=== PATIENT | female | born 1985 | race American Indian/Alaskan Native ===

== ENCOUNTER 2018-03-24 19:33 | Emergency (ER) | payer OTHER ==
[2018-03-25] MEDS ORDERED: FLEXERIL PO ONE (02:27)
[2018-03-25] MEDS ORDERED: MOTRIN PO ONE (02:27)
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
[2018-03-25 02:42] VITALS: BP 140/82
== END 2018-03-25 02:44 | disposition home or self-care (01) ==
LOC: ED 19:33
DX: S16.1XXA Strain of muscle, fascia and tendon at neck level, initial encounter (principal); E11.9 Type 2 diabetes mellitus without complications; Z98.51 Tubal ligation status; Z88.5 Allergy status to narcotic agent; Z88.8 Allergy status to other drugs, medicaments and biological substances; V89.2XXA Person injured in unspecified motor-vehicle accident, traffic, initial encounter; Y93.89 Activity, other specified; Y92.89 Other specified places as the place of occurrence of the external cause; Y99.8 Other external cause status
CPT/HCPCS: 99282

== ENCOUNTER 2020-04-30 16:07 | Emergency (ER) | payer SELFPAY ==
[2020-04-30 17:20] VITALS: BP 151/86
--- NOTE | 2020-04-30 17:26 | Emergency Department Report ---
Blank Doc - Documentation Documentation: 35-year-old female that presents with umbilical pain with swelling and drainage. This initial assessment/diagnostic orders/clinical plan/treatment(s) is/are subject to change based on patient's health status, clinical progression and re- assessment by fellow clinical providers in the ED. Further treatment and workup at subsequent clinical providers discretion. Patient/guardians urged not to elope from the ED as their condition may be serious if not clinically assessed and managed. Initial orders include: 1- Patient sent to [facility] for further evaluation and treatment 2- labs
[2020-04-30 19:03] LABS: Basophils % (Auto) 0.7 % (0.0-1.8); Eosinophils # (Auto) 0.1 K/mm3 (0.0-0.4); Eosinophils % (Auto) 1.1 % (0.0-4.3); Hematocrit 42.7 % (30.3-42.9); Hemoglobin 14.6 gm/dl (10.1-14.3); Lymphocytes # (Auto) 1.4 K/mm3 (1.2-5.4); Lymphocytes % (Auto) 28.2 % (13.4-35.0); Mean Corpuscular HGB Conc 34 % (30-34); Mean Corpuscular Volume 93 fl (79-97); Monocytes # (Auto) 0.3 K/mm3 (0.0-0.8); Monocytes % (Auto) 6.3 % (0.0-7.3); Platelet Count 262 K/mm3 (140-440); Red Blood Count 4.58 M/mm3 (3.65-5.03); Red Cell Distribution Width 13.5 % (13.2-15.2)
[2020-04-30 19:05] LABS: BUN/Creatinine Ratio 18; Blood Urea Nitrogen 14 mg/dL (7-17); Calcium 9.7 mg/dL (8.4-10.2); Hemolysis Index 15
[2020-04-30] MEDS ORDERED: ONDANSETRON 4 MG ODT TAB PO ONE (21:39)
[2020-04-30] MEDS ORDERED: IBUPROFEN 600 MG TAB PO ONE (21:39)
[2020-04-30] MEDS ORDERED: SULFAMETHOXAZOLE/TRIMETHOPRIM 800/160MG DS TAB PO ONE (21:39)
--- NOTE | 2020-04-30 22:20 | Emergency Department Report ---
ED General Adult HPI - General Chief complaint: Skin/Abscess/Foreign Body Stated complaint: PAIN/DISCHARGE/NAVEL Time Seen by Provider: 04/30/20 17:23 Source: patient, family Mode of arrival: Ambulatory Limitations: No Limitations - History of Present Illness Initial comments: Patient is a 35-year-old -Greek female with a history of non-insulin- dependent diabetes who presents to the ED with complaint of acute onset persistent painful swollen erythematous maculopapular rash with purulent discharge in the navel of the abdomen for the last 3 days. Patient states that the pain and the purulent discharge increased about 12 hours ago. Patient denies nausea, vomiting, diarrhea, dizziness, syncope, abdominal pain, chest pain or shortness of breath or headache and cough. MD Complaint: Painful swollen erythematous rash in the navel with purulent discharge -: Sudden, days(s) (3) Location: abdomen Radiation: non-radiation Severity scale (0 -10): 6 Quality: aching, sharp Consistency: constant Improves with: none Worsens with: none Associated Symptoms: denies other symptoms, rash (Erythematous maculopapular rash with purulent discharge in the navel). denies: confusion, chest pain, cough, diaphoresis, fever/chills, headaches, loss of appetite, shortness of breath, syncope, weakness Treatments Prior to Arrival: none - Related Data Previous Rx's Medication Instructions Recorded Last Taken Type Gentamicin 0.3% Ophth Soln 2 drops OP Q4H #1 bottle 02/05/14 Unknown Rx Nitrofurantoin [place]/M-Cryst 100 mg PO Q12HR #20 capsule 02/22/14 Unknown Rx [Macrobid] Phenazopyridine [Pyridium] 200 mg PO TID #6 tablet 02/22/14 Unknown Rx Cyclobenzaprine [Flexeril 10 MG 10 mg PO TID #30 tablet 03/25/18 Unknown Rx TAB] Ibuprofen [Motrin 600 MG tab] 600 mg PO Q8H #30 tablet 03/25/18 Unknown Rx Clindamycin [Clindamycin CAP] 300 mg PO Q8HR #60 capsule 04/30/20 Unknown Rx Ibuprofen [Motrin] 800 mg PO Q8HR PRN #30 tablet 04/30/20 Unknown Rx Sulfamethoxazole/Trimethoprim 1 each PO Q12H #20 tablet 10/07/20 Unknown Rx [Bactrim DS TAB] Allergies Allergy/AdvReac Type Severity Reaction Status Date / Time acetaminophen [From Percocet] Allergy Hives Verified 02/05/14 15:05 oxycodone HCl [From Percocet] Allergy Hives Verified 02/05/14 15:05 tramadol Allergy Itching Verified 02/05/14 15:05 ED Review of Systems ROS: Stated complaint: PAIN/DISCHARGE/NAVEL Other details as noted in HPI Constitutional: denies: chills, fever Eyes: denies: eye pain, eye discharge, vision change ENT: denies: ear pain, throat pain Respiratory: denies: cough, shortness of breath, wheezing Cardiovascular: denies: chest pain, palpitations Endocrine: no symptoms reported Gastrointestinal: denies: abdominal pain, nausea, diarrhea Genitourinary: denies: urgency, dysuria, discharge Musculoskeletal: denies: back pain, joint swelling, arthralgia Skin: rash (erythematous maculopapular rash with purulent discharge in the navel), change in color, pruritus. denies: lesions Neurological: denies: headache, weakness, paresthesias Psychiatric: denies: anxiety, depression Hematological/Lymphatic: denies: easy bleeding, easy bruising ED Past Medical Hx - Past Medical History Previous Medical History?: Yes Hx Diabetes: Yes - Surgical History Past Surgical History?: Yes Additional Surgical History: tubal ligation - Social History Smoking Status: Never Smoker Substance Use Type: None - Medications Home Medications: Home Medications Medication Instructions Recorded Confirmed Last Taken Type Gentamicin 0.3% Ophth Soln 2 drops OP Q4H #1 bottle 02/05/14 Unknown Rx Nitrofurantoin [place]/M-Cryst 100 mg PO Q12HR #20 capsule 02/22/14 Unknown Rx [Macrobid] Phenazopyridine [Pyridium] 200 mg PO TID #6 tablet 02/22/14 Unknown Rx Cyclobenzaprine [Flexeril 10 MG 10 mg PO TID #30 tablet 03/25/18 Unknown Rx TAB] Ibuprofen [Motrin 600 MG tab] 600 mg PO Q8H #30 tablet 03/25/18 Unknown Rx Clindamycin [Clindamycin CAP] 300 mg PO Q8HR #60 capsule 04/30/20 Unknown Rx Ibuprofen [Motrin] 800 mg PO Q8HR PRN #30 tablet 04/30/20 Unknown Rx Sulfamethoxazole/Trimethoprim 1 each PO Q12H #20 tablet 04/30/20 Unknown Rx [Bactrim DS TAB] ED Physical Exam - General Limitations: No Limitations General appearance: alert, in no apparent distress - Head Head exam: Present: atraumatic, normocephalic, normal inspection - Eye Eye exam: Present: normal appearance, PERRL, EOMI Pupils: Present: normal accommodation - ENT ENT exam: Present: normal exam, normal orophraynx, mucous membranes moist, TM's normal bilaterally, normal external ear exam - Neck Neck exam: Present: normal inspection, full ROM - Respiratory Respiratory exam: Present: normal lung sounds bilaterally. Absent: respiratory distress, wheezes, rales, rhonchi, chest wall tenderness, accessory muscle use, decreased breath sounds, prolonged expiratory - Cardiovascular Cardiovascular Exam: Present: regular rate, normal rhythm, normal heart sounds. Absent: systolic murmur, diastolic murmur, rubs, gallop - GI/Abdominal GI/Abdominal exam: Present: soft, normal bowel sounds. Absent: tenderness, guarding, rebound, hyperactive bowel sounds, hypoactive bowel sounds, or ganomegaly - Extremities Exam Extremities exam: Present: normal inspection, full ROM, normal capillary refill - Back Exam Back exam: Present: normal inspection, full ROM. Absent: tenderness, CVA tenderness (R), CVA tenderness (L), muscle spasm, paraspinal tenderness, vertebral tenderness - Neurological Exam Neurological exam: Present: alert, oriented X3, CN II-XII intact, normal gait, reflexes normal - Psychiatric Psychiatric exam: Present: normal affect, normal mood - Skin Skin exam: Present: warm, dry, intact, rash (Erythematous maculopapular tender rash with purulent discharge in the navel), erythema ED Course Vital Signs 04/30/20 17:17 Temperature 98 F Pulse Rate 68 Respiratory 16 Rate Blood Pressure 151/86 [Left] O2 Sat by Pulse 96 Oximetry ED Medical Decision Making - Lab Data Result diagrams: 04/30/20 18:33 04/30/20 18:33 - Medical Decision Making This is a 35-year-old -Greek female with a history of [id number] diabetes who presents to the ED with complaint of acute onset persistent painful swollen erythematous maculopapular rash with purulent discharge in the navel of the abdomen for the last 3 days. Patient states that the pain and the purulent discharge increased about 12 hours ago. In the ED, patient is alert and oriented x3 and is not in distress. Lab test results were reviewed and are all nonactionable. Patient was treated in the ED for pain and also given initial oral antibiotics in the ED. Patient was discharged home on pain medications and oral antibiotics and was advised to return to the ED immediately if symptoms get worse. Patient was also advised to follow-up with her primary care physician in 5 to 7 days for reevaluation. - Differential Diagnosis Cellulitis; folliculitis; abscess; Critical care attestation.: If time is entered above; I have spent that time in minutes in the direct care of this critically ill patient, excluding procedure time. ED Disposition Clinical Impression: Cellulitis of abdominal wall, Acute folliculitis Disposition: TO HOME OR SELFCARE Is pt being admited?: No Does the pt Need Aspirin: No Condition: Stable Instructions: Cellulitis (ED), Abscess (ED) Additional Instructions: Take medication with food, drink plenty of fluids and follow-up with your primary care physician in 7 to 10 days for reevaluation. Return to the ED immediately if symptoms get worse. Prescriptions: Sulfamethoxazole/Trimethoprim [Bactrim DS TAB] 1 each PO Q12H #20 tablet Clindamycin [Clindamycin CAP] 300 mg PO Q8HR #60 capsule Ibuprofen [Motrin] 800 mg PO Q8HR PRN #30 tablet PRN Reason: Pain , Severe (7-10) Referrals: [facility] [Provider Group] - 7-10 days Time of Disposition: 22:22 Print Language: SCOTTISH
== END 2020-04-30 22:30 | disposition home or self-care (01) ==
LOC: ED 16:07
DX: L03.311 Cellulitis of abdominal wall (principal); L73.8 Other specified follicular disorders; E11.9 Type 2 diabetes mellitus without complications; Z98.51 Tubal ligation status; Z79.899 Other long term (current) drug therapy; Z88.6 Allergy status to analgesic agent
CPT/HCPCS: 36415; 80048; 84703; 85025; 99283; Q0162